=== PATIENT | female | born 2000 | race Caucasian/White ===

== ENCOUNTER 2022-12-30 21:23 | Observation (INO) | payer SELFPAY ==
--- NOTE | ~2022-12-30 | CT_ITS ---
Noncontrast CT scan of the lumbar spine CLINICAL HISTORY: Back pain radiating to lower extremities TECHNIQUE: Axial noncontrast imaging of the lumbar spine was performed. Sagittal and coronal reformat joi images were constructed. Dose reduction technique was used on this scan by utilizing automated ex posure control and iterative reconstruction technique. The dose-length product (DLP) was 1167.64 mGy- cm. FINDINGS: There is no fracture or subluxation lumbar spine. Vertebral bodies maintain normal height a nd alignment. Intervertebral disc spaces are relatively well-preserved. At L1-L2, there is no disc bulge or herniation. No spinal canal stenosis or neural foraminal narrowin g. At L2-L3, there is no disc bulge or herniation. No spinal canal stenosis or neural foraminal narrowin g. At L3-L4, there is possible minimal disc bulge and minimal facet joint hypertrophy. No octavia central canal stenosis or neural foraminal narrowing. At L4-L5, there is broad-based disc bulge with possible minimal central canal stenosis. There is mild right neural foraminal narrowing. Left neural foramen preserved. At L5-S1, there is minimal disc bulge. No central canal stenosis. There is probable mild to moderate right neural foraminal narrowing and mild left neural foraminal narrowing. Paravertebral soft tissues are unremarkable. Impression: Mild spondylosis at L4-L5 and L5-S1, as detailed above. Reviewed, dictated and finalized at [facility]. Impression: Mild spondylosis at L4-L5 and L5-S1, as detailed above.
--- NOTE | ~2022-12-30 | MR_ITS ---
EXAMINATION: MR lumbar spine wo con DATE: 12/31/2022 08:47 INDICATION: Lumbar radiculopathy TECHNIQUE: Magnetic resonance imaging (MRI) of the lumbar spine was performed without intravenous con trast. Sequences included sagittal T2-weighted FSE, sagittal T2-weighted FS FSE, sagittal T1-weighted FSE, and axial T2-weighted FSE. COMPARISON: None FINDINGS: Alignment is normal. Vertebral body heights are normal. Normal marrow signal. Mild disc height loss at L3-L4 and L5-S1 and mild to moderate disc height loss at L4-L5. There are annular fissures at each of these levels. The more cephalad discs are normal. The conus medullaris terminates at L1-L2. There is normal signal in the caudal spinal cord. Paravertebral soft tissues are unremarkable. The followi ng disc levels are specifically discussed: T12-L1: The disc does not extend beyond the endplate margin. There is mild bilateral facet joint oste oarthritis. There is no neural foraminal stenosis. There is no central canal stenosis. L1-L2: The disc does not extend beyond the endplate margin. There is mild bilateral facet joint osteo arthritis. There is no neural foraminal stenosis. There is no central canal stenosis. L2-L3: The disc does not extend beyond the endplate margin. There is mild bilateral facet joint osteo arthritis. There is no neural foraminal stenosis. There is no central canal stenosis. L3-L4: Disc is mildly bulging with superimposed annular fissure and small central disc protrusion. Th ere is mild bilateral facet joint osteoarthritis. There is no neural foraminal stenosis. There is mil d central canal stenosis. L4-L5: Disc is bulging with annular fissure and central disc extrusion with disc material extending u p to 2 mm cephalad and caudal to the level of the endplates. There is moderate bilateral facet joint osteoarthritis. There is mild bilateral neural foraminal stenosis. There is mild central canal stenos is. L5-S1: Disc is mildly bulging with superimposed annular fissure and moderate size central disc extrus ion with disc material extending up to 4 mm caudal to the level of the superior endplate of S1. There is mild bilateral facet joint osteoarthritis. There is mild bilateral neural foraminal stenosis. The re is mild central canal stenosis. IMPRESSION: 1. Mild to moderate lower lumbar spondylosis. Reviewed, dictated and finalized at location A.
[2022-12-30 21:25] VITALS: BP 163/83; PULSE 107; RESP 17; TEMP 37.2; O2SAT 100
--- NOTE | 2022-12-30 22:55 | PC.NURSE ---
Assumed care of pt from SIMONA Camacho at this time.
--- NOTE | 2022-12-30 22:55 | PC.NURSE ---
Report given to SIMONA Hare. Care of pt transferred.
[2022-12-30 23:20] VITALS: BP 138/92; PULSE 68; RESP 20; O2SAT 98
[2022-12-31] VITALS (15 sets, daily range): BP systolic 109–141; BP diastolic 72–121; PULSE 62–83; RESP 14–20; TEMP 36.6–36.7; O2SAT 97–100; BMI 36.1
[2022-12-31] MEDS: KETOROLAC 30 MG/ML VIAL (*BKC) IM (00:02)
[2022-12-31] MEDS: oxyCODONE HCL (*CRX) 5 MG TAB IR PO (00:02)
[2022-12-31] MEDS: ACETAMINOPHEN 500 MG TABLET 1000 MG PO (00:02)
--- NOTE | 2022-12-31 00:02 | ED.BACK ---
HPI - Back Pain/Injury General Chief Complaint: Back Pain/Injury <JEREL Vance Last Filed: 12/31/22 02:45> Stated Complaint: back pain <JEREL Vance Last Filed: 12/31/22 02:45> Time Seen by Provider: 12/30/22 22:34 <JEREL Vance Last Filed: 12/31/22 02:45> Source: patient <JEREL Vance Last Filed: 12/31/22 02:45> Mode of arrival: ambulatory <JEREL Vance Last Filed: 12/31/22 02:45> Limitations: no limitations <JEREL Vance Last Filed: 12/31/22 02:45> History of Present Illness HPI Narrative: This is a 22 year old female that presents to the ER for low back pain. Ongoing since yesterday. The pain radiates into her hips and down her legs. Reports no known injury or trauma. Reports history of chronic back pain for which she was seeing a specialist where she used to live. She recently moved to this area. Reports the pain is worse with movement and certain positions. She took a prescribed pain medication and a muscle relaxer with some relief yesterday. She has not taken anything yet today for pain. Reports history of bulging discs. Reports intermittent tingling in her lower extremities. Denies saddle anesthesia or bowel/bladder incontinence. <JEREL Vance Last Filed: 12/31/22 02:45> Related Data Allergies/Adverse Reactions: Allergies Allergy/AdvReac Type Severity Reaction Status Date / Time fentanyl Allergy Rash Verified 12/30/22 22:17 midazolam [From Versed] Allergy Rash Verified 12/30/22 22:17 <JEREL Vance Last Filed: 12/31/22 02:45> Review of Systems Review of Systems: CONSTITUTIONAL: Denies fever SKIN: Denies rash MUSCULOSKELETAL: Reports back pain, joint pain, and myalgia. NEUROLOGIC: Denies numbness, or weakness. <JEREL Vance Last Filed: 12/31/22 02:45> All systems reviewed & are unremarkable except as noted in HPI and below <Isadora Lezama PA-C - Last Filed: 12/31/22 02:45> [facility] Past Medical History Medical History: Medical History (Updated 12/31/22 @ 04:53 by Kevin Stovall MD) Lumbar disc herniation Lumbosacral radiculopathy due to degenerative joint disease of spine No active medical problems <Isadora Lezama PA-C - Last Filed: 12/31/22 02:45> Family History Family History: Family History Mother IBS (irritable bowel syndrome) Father Hypertension <Isadora Lezama PA-C - Last Filed: 12/31/22 02:45> Social History Social History: Social History Smoking status: Never smoker Alcohol intake: never Substance use: never Lack of Transportation: No Lack of Food: Sometimes True Current Housing: I Have Housing Concerned About Future Housing: Decline to Answer Difficulty Paying Gas/Electric Bills: Decline to Answer Difficulty Paying for Meds: No Currently Unemployed: No Education: High School Diploma/GED Difficulty w/ Childcare or Family Care: No Spiritual care concerns: No <Isadora Lezama PA-C - Last Filed: 12/31/22 02:45> Exam Narrative: GENERAL: Well-appearing, well-nourished, and in no acute distress. HEAD: Normocephalic, atraumatic. EYES: EOMI. CHEST: Clear to auscultation. No respiratory distress. No wheezes rales or rhonchi HEART: Regular rate and rhythm. No murmur heard. Normal peripheral pulses. BACK: No midline spinal tenderness EXTREMITIES: Normal range of motion. No edema. Strength equal in bilateral lower extremities (5/5) SKIN: Warm, dry, no rash. NEURO: No focal deficits. Alert and oriented x3. PSYCH: Normal mood and affect <Isadora Lezama PA-C - Last Filed: 12/31/22 02:45> Course Course Emergency Course: Patient and family updated on workup. Offered admission for further pain control and Neurosurgery consult inpatient versus follow-up outpatient. Patient would like to stay in
--- NOTE | 2022-12-31 04:32 | ADMGEN ---
This patient, Alida Singh, was admitted to Medical Room 261-01. Patient/family oriented to hospital policies and general routines including ID bracelet, bed and alarms, visiting hours, pain management, procedures, bathroom and other care routines, personal items, smoking policy, room service/diet, and visiting hours. Information on how to activate the Rapid Response Team has been discussed. Patient/Family are encouraged to report perceived risks to care and to ask questions if they do not understand what they are told or what they should do.
--- NOTE | 2022-12-31 04:41 | PM.IMHP ---
H&P: HPI History of Present Illness Date/Time: 12/31/22 04:41 Chief Complaint: patient is a here for evaluation because of worsening low back pain Narrative: She is a very pleasant young lady who came to the ER for evaluation because of low back pain which is worsening over the last few days. She is complaining of for low back pain off and on since last 1 year, but got worse over the last few months ago when she was diagnosed as herniated lumbar disc. The pain is radiating into her hips and down her legs, intensity 7 to 8/10. She used to see a back pain specialist, but she has recently moved into this area and has not yet established with anyone. Pain is worse with movement and certain positions. She took some pain medication and muscle relaxer prescribed from her pain specialist which helped a little. She came to the ER for evaluation. Workup done was done by CT scan of lumbar spine which showed degenerative disc disease lumbosacral spine with disc herniation. Neurosurgery was consulted who want to place the patient under observation for MRI and further workup. Review of Systems Review of Systems: she denies any chest pain, palpitations, fever rigor chills, nausea vomiting, dizziness loss of consciousness. All systems reviewed & are unremarkable except as noted in HPI and below PMFSH Past Medical History Medical History (Updated 12/31/22 @ 04:53 by Kevin Stovall MD) Lumbar disc herniation Lumbosacral radiculopathy due to degenerative joint disease of spine No active medical problems Family History Family History Mother IBS (irritable bowel syndrome) Father Hypertension Social History Social History Smoking status: Never smoker Alcohol intake: never Substance use: never Lack of Transportation: No Lack of Food: Sometimes True Current Housing: I Have Housing Concerned About Future Housing: Decline to Answer Difficulty Paying Gas/Electric Bills: Decline to Answer Difficulty Paying for Meds: No Currently Unemployed: No Education: High School Diploma/GED Difficulty w/ Childcare or Family Care: No Spiritual care concerns: No Meds Home Medications and Allergies Home Medications Medication Instructions Recorded Confirmed Type No Home Medications 12/31/22 12/31/22 History Allergies Allergy/AdvReac Type Severity Reaction Status Date / Time fentanyl Allergy Rash Verified 09/21/23 22:17 midazolam [From Versed] Allergy Rash Verified 12/30/22 22:17 Vital Signs Vital Signs - 24 hr 12/30/22 21:25 12/31/22 00:25 12/30/22 23:20 Temperature 37.2 C Pulse Rate 107 H 83 68 Respiratory Rate 17 16 20 Blood Pressure 163/83 H 141/89 H 138/92 H Pulse Oximetry 100 99 98 Oxygen Delivery Room Air 12/31/22 00:25 12/31/22 01:09 12/31/22 01:17 Temperature Pulse Rate 66 78 75 Respiratory Rate 20 20 19 Blood Pressure 141/89 H 120/75 109/78 Pulse Oximetry 97 97 98 Oxygen Delivery 12/31/22 01:31 12/31/22 01:47 12/31/22 02:16 Temperature Pulse Rate 69 72 69 Respiratory Rate 16 18 20 Blood Pressure 118/77 109/92 H 119/81 Pulse Oximetry 98 98 97 Oxygen Delivery 12/31/22 02:31 12/31/22 02:46 12/31/22 03:01 Temperature Pulse Rate 70 62 65 Respiratory Rate 16 17 19 Blood Pressure 126/91 H 132/121 H 117/72 Pulse Oximetry 97 98 97 Oxygen Delivery 12/31/22 03:16 12/31/22 03:31 12/31/22 03:46 Temperature Pulse Rate 68 74 78 Respiratory Rate 20 18 16 Blood Pressure 132/114 H 121/81 114/81 Pulse Oximetry 100 100 100 Oxygen Delivery 12/31/22 04:26 Temperature 36.6 C Pulse Rate 71 Respiratory Rate 14 Blood Pressure 122/80 Pulse Oximetry 100 Oxygen Delivery Exam Narrative: PHYSICAL EXAMINATION: Vital signs: Please see the chart General physical exam: Patient sitting in bed, complaining of low back pain with the movemen
[2022-12-31] MEDS: SODIUM CHLORIDE 0.9% IV 1,000 ML 100 ML IV CONT (05:13)
[2022-12-31] MEDS: MORPHINE SULFATE (*CRX) 2 MG/ML INJ IV PUSH (05:15)
[2022-12-31 06:07] LABS: Basophils Absolute Auto 0.1 K/mm3 (0.0-0.1); Basophils Percent Auto 0.8 % (0.2-1.2); Eosinophils Absolute Auto 0.1 K/mm3 (0-0.3); Eosinophils Percent Auto 1.4 % (0-4.4); Hematocrit 38.1 % (37.0-47.0); Hemoglobin 12.3 g/dL (12.0-15.0); Lymphocytes Absolute Auto 2.95 K/mm3 (0.9-3.2); Lymphocytes Percent Auto 46.2 % (18.3-44.2); Mean Corpuscular HGB Conc 32.3 g/dl (32-36); Mean Corpuscular Hemoglobin 28.6 pg (26-34); Mean Corpuscular Volume 88.6 fl (80-100); Mean Platelet Volume 10.8 fl (7.4-10.4); Monocytes Absolute Auto 0.6 K/mm3 (0.1-0.6); Monocytes Percent Auto 8.9 % (2.6-8.5); Neutrophils Absolute Auto 2.7 K/mm3 (1.3-6.7); Neutrophils Percent Auto 42.7 % (45.5-73.1); Platelet Count Result 253 k/mm3 (150-375); Red Cell Distribution Width 12.4 % (11.5-14.5); White Blood Count 6.4 K/mm3 (4.5-10.0)
[2022-12-31 06:13] LABS: Alanine Aminotransferase 18 U/L (6-35); Albumin Level 4.5 g/dL (3.5-5.1); Alkaline Phosphatase 62 U/L (38-126); Anion Gap 10 mmol/L (8-16); Aspartate Amino Transferase 21 U/L (14-36); Bilirubin,Total 0.3 mg/dL (0.2-1.3); Blood Urea Nitrogen 15 mg/dL (7-17); Calcium 9.1 mg/dL (8.4-10.2); Carbon Dioxide 22 mmol/L (22-30); Chloride 107 mmol/L (98-107); Estimated CRCL calculation 95 ml/min; Estimated Glomerular Filt Rate > 60; Glucose 86 mg/dL (65-110); Magnesium 2.3 mg/dL (1.6-2.3); Phosphorus 4.9 mg/dL (2.5-4.5); Potassium 4.2 mmol/L (3.4-5.0); Sodium 139 mmol/L (137-145)
--- NOTE | 2022-12-31 08:03 | PM.IMPN ---
Progress Note: A&P Assessment and Plan (1) Lumbosacral radiculopathy due to degenerative joint disease of spine: Code(s): M47.27 - Other spondylosis with radiculopathy, lumbosacral region Status: Acute Assessment and Plan: Here with 7-8/10 back pain. Mild improvement with muscle relaxers. -Oxycodone 5-10 mg prn for pain, Morphine 2 mg Q 4 hours for breakthrough, acetaminophen 650 mg PO Q4 PRN, Flexeril 10 mg TID for spasms -CT of lumbar spine shows L4-L5 broad-based disc bulge with possible minimal central canal stenosis and mild right neural foraminal narrowing. L5-S1 with minimal disc bulge, no central stenosis, mild to moderate right neural foraminal narrowing and mild left neural foraminal narrowing. -MRI of lumbar spine is ordered and pending -Neurosurgery was consulted in the ED, rec's appreciated. (2) Lumbar disc herniation: Code(s): M51.26 - Other intervertebral disc displacement, lumbar region Status: Acute Assessment and Plan: see above Subjective Date/time seen: 12/31/22 08:03 Interval history: HPI obtained from chart, Chief Complaint: patient is a here for evaluation because of worsening low back pain Narrative: She is a very pleasant young lady who came to the ER for evaluation because of low back pain which is worsening over the last few days.? She is complaining of for low back pain off and on since last 1 year, but got worse over the last few months ago when she was diagnosed as herniated lumbar disc.? The pain is radiating into her hips and down her legs, intensity 7 to 8/10.? She used to see a back pain specialist, but she has recently moved into this area and? has not yet established with anyone.? Pain is worse with movement and certain positions.? She took some pain medication and muscle relaxer prescribed from her pain specialist which helped a little. ? She came to the ER for evaluation.? Workup done was done by CT scan of lumbar spine which showed degenerative disc disease lumbosacral spine with disc herniation.? Neurosurgery was consulted who want to place the patient under observation for MRI and further workup. Interval history: 12/31: Review of Systems Review of Systems: All systems reviewed & are unremarkable except as noted in HPI and below Exam Narrative: General: well appearing, well developed, well nourished, appears stated age. HEENT: normocephalic, atraumatic. Mucous membranes moist. EOMI, PERRLA, bilateral sclera anicteric, no conjunctival injection. Neck supple without JVD, lymphadenopathy, or bruit. Respiratory: clear to ascultation bilaterally. No rales/rhonic/wheezes. Cardiovascular: Regular rate and rhythm, normal S1-S2 upon ascultation. No murmurs, rubs, or clicks. PMI is nondisplaced, capillary re-fill less than 3 second. Abdomen: Soft, flat, no pulsatile masses, non-distended and non-tender. No rebound, no guarding. No CVA tenderness, no hepatosplenomegaly. Bowel sounds present to all four quadrants. No high pitch or tinkling sounds, resonant to percussion. Extremities: No cyanosis, clubbing, or edema present. Pulses are palpable 2/2. Active ROM to all four extremities. Neuro: Alert and orientated x 4. PERRLA. Cranial nerves 2-12 intact without focal deficit. Skin: Warm, dry, and intact, without rash, erythema, or lesion. Lines: Incisions: Psych: pleasant, cooperative, normal speech, normal affect, no hallucinations, no dysarthia Objective Data Vital Signs Vital Signs: Vital Signs - 24 hr 12/30/22 21:25 12/31/22 00:25 12/30/22 23:20 Temperature 98.9 F Pulse Rate 107 H 83 68 Respiratory Rate 17 16 20 Blood Pressure 163/83 H 141/89 H 138/92 H Pulse Oximetry 100 99 98 Oxygen Delivery Room Air 12/31/22 00:25 12/31/22 01:09 12/31/22 01:17 Temperature Pulse Rate 66 78 75 Respiratory Rate 20 20 19 Blood Pressure 141/89 H 120/75 109/78 Pulse Oximetry 97 97 98 Oxygen Delivery 12/31/22 01:31 12/31/22 01
--- NOTE | 2022-12-31 14:13 | WPDNEUROSGPN ---
Subjective Date/time seen: 12/31/22 14:13 Interval history: PAtient admitted overnight with low back and lower extremity pain and sensory change MRI reviewed by me. Shows multilevel spondylotic changes with disc desiccation at L3-4, L4-5 and L5-S1. There is a small central protrusion at L5-S1 but at no level is there any greater than mild central or neuroforaminal stenosis. I see no radiographic changes that would indicate a reason for consideration of surgical intervention. I have discussed this with Janice Weiss who is caring for the patient. Would advocate for conservative management including an oral steroid taper, muscle relaxants and perhaps a very small rx for pain medications (but would emphasize that these do not typically help with nerve pain). Patient would benefit from outpatient engagement with physical therapy and pain management (could be through the NH vs - Dr. Martinez for pain management). I see no barrier to discharge with outpatient follow up as above. Objective Data Vital Signs Vital Signs: Vital Signs - 24 hr 12/30/22 21:25 12/31/22 00:25 12/30/22 23:20 Temperature 98.9 F Pulse Rate 107 H 83 68 Respiratory Rate 17 16 20 Blood Pressure 163/83 H 141/89 H 138/92 H Pulse Oximetry 100 99 98 Oxygen Delivery Room Air 12/31/22 00:25 12/31/22 01:09 12/31/22 01:17 Temperature Pulse Rate 66 78 75 Respiratory Rate 20 20 19 Blood Pressure 141/89 H 120/75 109/78 Pulse Oximetry 97 97 98 Oxygen Delivery 12/31/22 01:31 12/31/22 01:47 12/31/22 02:16 Temperature Pulse Rate 69 72 69 Respiratory Rate 16 18 20 Blood Pressure 118/77 109/92 H 119/81 Pulse Oximetry 98 98 97 Oxygen Delivery 12/31/22 02:31 12/31/22 02:46 12/31/22 03:01 Temperature Pulse Rate 70 62 65 Respiratory Rate 16 17 19 Blood Pressure 126/91 H 132/121 H 117/72 Pulse Oximetry 97 98 97 Oxygen Delivery 12/31/22 03:16 12/31/22 03:31 12/31/22 03:46 Temperature Pulse Rate 68 74 78 Respiratory Rate 20 18 16 Blood Pressure 132/114 H 121/81 114/81 Pulse Oximetry 100 100 100 Oxygen Delivery 12/31/22 04:26 12/31/22 04:50 12/31/22 08:30 Temperature 97.8 F Pulse Rate 71 71 Respiratory Rate 14 14 Blood Pressure 122/80 Pulse Oximetry 100 100 Oxygen Delivery Room Air Room Air Meds/Results Medications: Active Medications Generic Name Dose Route Start Last Admin Trade Name Freq PRN Reason Stop Dose Admin Acetaminophen 650 mg 12/31/22 04:42 Acetaminophen 325 Mg Tablet PO Q4H PRN Mild Pain (1-3) or Fever Al Hydrox/Mg Hydrox/Simethicone 30 ml 12/31/22 04:42 Mag Hydrox/Al Hydrox/Simeth 30 Ml Udc PO QID PRN Dyspepsia Cyclobenzaprine HCl 10 mg 12/31/22 08:08 Cyclobenzaprine Hcl 10 Mg Tablet PO Q8H PRN Muscle Spasm Morphine Sulfate 2 mg 12/31/22 08:13 Morphine Sulfate (*Crx) 2 Mg/Ml Inj IV PUSH Q4H PRN Breakthrough Pain Oxycodone HCl 5 mg 12/31/22 08:12 Oxycodone Hcl (*Crx) 5 Mg Tab Ir PO Q4H PRN Moderate Pain (4-6) Oxycodone HCl 10 mg 12/31/22 08:12 Oxycodone Hcl (*Crx) 5 Mg Tab Ir PO Q4H PRN Pain Rated 7-10 Radiology Results: ITS Impressions Lumbar Spine CT 12/31/22 05:37 Impression: Mild spondylosis at L4-L5 and L5-S1, as detailed above. Lumbar Spine MRI 12/31/22 08:53 IMPRESSION: 1. Mild to moderate lower lumbar spondylosis. Labs Labs: Laboratory Results - last 24 hr 12/31/22 05:19 WBC 6.4 RBC 4.30 Hgb 12.3 Hct 38.1 MCV 88.6 MCH 28.6 MCHC 32.3 RDW 12.4 Plt Count 253 MPV 10.8 H Immature Gran % (Auto) 0.0 Neut % (Auto) 42.7 L Lymph % (Auto) 46.2 H Haines % (Auto) 8.9 H Eos % (Auto) 1.4 Baso % (Auto) 0.8 Lymph # (Auto) 2.95 Haines # (Auto) 0.6 Eos # (Auto) 0.1 Baso # (Auto) 0.1 Abs Immat Gran (auto) 0.00 Absolute Neuts (auto) 2.7 Absolute Nucleated RBC 0.0 Nucleated RBC % 0.0 Sodium 139 Potassium 4.2 Chloride
--- NOTE | 2022-12-31 15:03 | PM.DS ---
DS: Admitting Diagnosis Discharge Date 12/31/22 Admitting Diagnosis back pain DS: Discharge Diagnosis Discharge Diagnosis (1) Lumbosacral radiculopathy due to degenerative joint disease of spine: Code(s): M47.27 - Other spondylosis with radiculopathy, lumbosacral region Status: Acute Assessment and Plan: Mild to moderate lower lumbar spondylosis I spoke with Dr Mireles who has recommended steroids, Flexeril, and outpatient PT/OT. She does not require surgery at this time. She also recommended outpatient consult with pain management. (2) Lumbar disc herniation: Code(s): M51.26 - Other intervertebral disc displacement, lumbar region Status: Acute DS: Summary Hospital Course Hospital Course: Chief Complaint: ?patient is a here for evaluation because of worsening low back pain \ Narrative: She is a very pleasant young lady who came to the ER for evaluation because of low back pain which is worsening over the last few days.? She is complaining of for low back pain off and on since last 1 year, but got worse over the last few months ago when she was diagnosed as herniated lumbar disc.? The pain is radiating into her hips and down her legs, intensity 7 to 8/10.? She used to see a back pain specialist, but she has recently moved into this area and? has not yet established with anyone.? Pain is worse with movement and certain positions.? She took some pain medication and muscle relaxer prescribed from her pain specialist which helped a little. ? She came to the ER for evaluation.? Workup done was done by CT scan of lumbar spine which showed degenerative disc disease lumbosacral spine with disc herniation.? Neurosurgery was consulted who want to place the patient under observation for MRI and further workup. 12/31: Patient was seen today resting in bed. She says that she has pain to her right hip and right leg as well as numbness to bilateral lower extremities, right greater than left. She reports using crutches to help her get up from a sitting position. She is also complaining of being fatigued and having headaches. I spoke with neurosurgery and there is no surgical intervention necessary. The patient can follow up with pain management, pcp, and be discharged with steroids and muscle relaxants. Status at Discharge Cognitive/behavioral status at discharge: A&O x4 Time Spent with Patient Time attestation: Total time spent providing and/or coordinating discharge services: 40 Exam Narrative: General: well appearing, well developed, well nourished, appears stated age. HEENT: normocephalic, atraumatic. Mucous membranes moist. EOMI, PERRLA, bilateral sclera anicteric, no conjunctival injection. Neck supple without JVD, lymphadenopathy, or bruit. Respiratory: clear to auscultation bilaterally. No rales/rhonic/wheezes. Cardiovascular: Regular rate and rhythm, normal S1-S2 upon auscultation. No murmurs, rubs, or clicks. PMI is nondisplaced, capillary re-fill less than 3 second. Abdomen: Soft, flat, no pulsatile masses, non-distended and non-tender. No rebound, no guarding. No CVA tenderness, no hepatosplenomegaly. Bowel sounds present to all four quadrants. No high pitch or tinkling sounds, resonant to percussion. Extremities: No cyanosis, clubbing, or edema present. Pulses are palpable 2/2. Strength 5/5 to left upper and lower extremities, 4/5 to right lower extremities. Active ROM to all four extremities. Neuro: Alert and orientated x 4. PERRLA. Cranial nerves 2-12 intact without focal deficit. Skin: Warm, dry, and intact, without rash, erythema, or lesion. Lines: Incisions: Psych: pleasant, cooperative, normal speech, normal affect, no hallucinations, no dysarthria DS: Data Data Completed and Pending Labs on day of discharge: Labs from last 24 hours 12/31/22 05:19 WBC 6.4 RBC 4.30 Hgb 12.3 Hct 38.1 MCV 88.6 MCH 28.6 MCHC 32.3 RDW 12.4 Plt Count 253 MPV 10.8 H Immature Gran % (Auto)
[2022-12-31] MEDS: ACETAMINOPHEN/BUTALBITAL/CAFFEINE 325-50-40 MG TABLET (FIORICET) 1 TAB PO (15:47)
== END 2022-12-31 16:20 | disposition home or self-care (01) ==
LOC: ANHED 12-31 02:34 → ANH2MED 12-31 03:40
PROVIDERS: Admitting Provider Family Medicine; Emergency Provider Physician Assistant; Visit Provider Family Medicine
DX: M47.27 Other spondylosis with radiculopathy, lumbosacral region (principal); M51.26 Other intervertebral disc displacement, lumbar region
CPT/HCPCS: 36415; 72131; 72148; 80053; 81025; 83735; 84100; 85025; 96372; 96374; 99285; A9270; G0378; J1885; J2270; J7030